=== PATIENT | female | born 1950 | race Caucasian/White ===

== ENCOUNTER → 2017-10-03 | Outpatient (CLI) | payer MEDICARE, OTHER ==
--- NOTE | 2017-10-03 10:41 | REPMRS ---
Patient History The patient states she had a clinical breast exam in Patient is postmenopausal and has history of other cancer at age 56. Family history of colorectal cancer in paternal cousin at age 63. Benign core biopsy of the right breast, November 08, 2012. Benign stereotatic breast biopsy of the right breast, 2004. Digital Woman Screen Mammo: October 03, 2017 - Exam #: [id number] Bilateral CC and MLO view(s) were taken. Technologist: Lizabeth Mcneal, Technologist Prior study comparison: July 14, 2016, digital woman screen mammo performed at [facility]. March 03, 2015, digital woman screen mammo performed at [facility]. FINDINGS: There are scattered fibroglandular densities. There has been no change in the appearance of the mammogram from the prior studies. There is a mild amount of residual fibroglandular tissue which is fairly symmetric. There is no interval development of dominant mass, architectural distortion, or clustered microcalcification suggestive of malignancy. ASSESSMENT: BI-RADS/ACR category 1 mammogram. Negative. Recommendation Routine screening mammogram in 1 year (for women over age 40). This mammogram was interpreted with the aid of an FDA-approved computer-aided dectection system. Electronically Signed By: Philip Pinto MD 10/03/17 [id number]
--- NOTE | 2017-10-05 09:16 | DEXA ---
AP SPINE L1 - L4 1.181 0.0 1.6 LT FEMUR TOTAL 0.867 -1.1 0.2 RT FEMUR TOTAL 0.854 -1.2 0.1 TOTAL BODY TOTAL OTHER COMMENTS: Normal bone densitometry of the spine. There is low bone density of the hips. The density of the spine is decreased 2.6% since 06/2005. The density of the left hip has decreased 8.4% since 06/2005. The density of the right hip has decreased 8.7% since 06/2005. The decreased density of the spine does represent a significant change. The decreased density of the left hip does represent a significant change. The decreased density of the right hip does represent a significant change. FOLLOW-UP: Recommendation for the next bone density exam: 2 years. NORMA
== END ==
LOC: M WHC 09:05
PROVIDERS: ATTEND Family Medicine
DX: Z12.31 Encounter for screening mammogram for malignant neoplasm of breast (principal); M81.0 Age-related osteoporosis without current pathological fracture; Z78.0 Asymptomatic menopausal state
CPT/HCPCS: 77080; G0202

== ENCOUNTER → 2019-12-20 | Outpatient (CLI) | payer MEDICARE, OTHER ==
--- NOTE | 2019-12-20 16:47 | REPMRS ---
Patient History Family history of colorectal cancer at age 63 in paternal cousin. Benign core biopsy of the right breast, November 08, 2012. Benign stereotatic breast biopsy of the right breast, 2005. Digital Woman Screen Mammo: December 20, 2019 - Exam #: [id number] Bilateral CC and MLO view(s) were taken. Technologist: Indira Cardenas, Technologist Prior study comparison: October 18, 2018, bilateral digital woman screen mammo performed at [facility]. October 03, 2017, digital woman screen mammo performed at [facility]. July 14, 2016, digital woman screen mammo performed at [facility]. FINDINGS: There are scattered fibroglandular densities. There are stable nodular opacities again noted in both breasts unchanged. There are two previously placed needle biopsy marker clips again noted on the right. There has been no change in the appearance of the mammogram from the prior studies. There is a mild amount of scattered fibroglandular density which is fairly symmetric. There is no interval development of dominant mass, architectural distortion, or grouped microcalcification suggestive of malignancy. 3-D tomosynthesis shows no additional findings. Assessment: BI-RADS/ACR category 2 mammogram. Benign Findings. Recommendation Routine screening mammogram of both breasts in 1 year (for women over age 40). This patient's Lifetime Breast Cancer Risk is estimated at 4.1 %. This mammogram was interpreted with the aid of an FDA-approved computer-aided dectection system. Electronically Signed By: Kaden Cuevas MD 12/20/19 [id number]
== END ==
LOC: M WHC 13:23
PROVIDERS: ATTEND Family Medicine
DX: Z12.31 Encounter for screening mammogram for malignant neoplasm of breast (principal)

== ENCOUNTER → 2020-12-22 | Outpatient (CLI) | payer MEDICARE, OTHER ==
--- NOTE | 2020-12-22 11:41 | REPMRS ---
Patient History The patient states she had a clinical breast exam in 2020. Family history of colorectal cancer at age 63 in paternal cousin. Benign core biopsy of the right breast, November 08, 2012. Benign stereotatic breast biopsy of the right breast, 2004. Digital Woman Screen Mammo: December 22, 2020 - Exam #: [id number] Bilateral CC and MLO view(s) were taken. Technologist: Joselin Reilly, Technologist Prior study comparison: December 20, 2019, bilateral digital woman screen mammo performed at [facility]. October 18, 2018, bilateral digital woman screen mammo performed at [facility]. October 03, 2017, digital woman screen mammo performed at [facility]. FINDINGS: There are scattered fibroglandular densities. The Volpara volumetric breast density category is:B. There has been no change in the appearance of the mammogram from the prior studies. There is a mild amount of scattered fibroglandular density which is fairly symmetric. There is no interval development of dominant mass, architectural distortion, or grouped microcalcification suggestive of malignancy. 3-D tomosynthesis shows no additional findings. Assessment: BI-RADS/ACR category 1 mammogram. Negative Mammogram. Recommendation Routine screening mammogram of both breasts in 1 year (for women over age 40). This patient's [facility] Lifetime Breast Cancer Risk is estimated at 3.9 %. This mammogram was interpreted with the aid of an FDA-approved computer-aided dectection system. Electronically Signed By: Kaden Cuevas MD 12/22/20 [id number]
--- NOTE | 2020-12-22 11:56 | DEXAMM ---
INDICATION: Z78.0 POST MENOPAUSAL. COMPARISON: 10/03/2017, 06/28/2005. TECHNIQUE: Bone density was measured using dual-energy x-ray absorptiometry (DEXA). FINDINGS: AP SPINE L1-L4 BMD 1.186 g/cm2 Young Adult T-Score 0.1 Age Matched Z-Score 1.7. LT FEMUR, TOTAL BMD 0.867 g/cm2 Young Adult T-Score -1.1 Age Matched Z-Score 0.3. LT NECK BMD 0.801 g/cm2 Young Adult T-Score -1.7 Age Matched Z-Score 0.0. RT FEMUR, TOTAL BMD 0.828 g/cm2 Young Adult T-Score -1.4 Age Matched Z-Score 0.0. RT NECK BMD 0.769 g/cm2 Young Adult T-Score -1.9 Age Matched Z-Score -0.3. IMPRESSION: There is normal bone density of the spine. There is low bone density of the left hip. There is low bone density of the right hip. The density of the spine has decreased 2.1% since the initial exam on 06/28/2005. The density of the spine increased 0.4% since most recent exam on 10/03/2017. The density of the left hip has decreased 8.4% since initial exam on 06/28/2005. The density of the left hip has not changed since most recent exam on 10/03/2017. The density of the right hip has decreased 11.4% since the initial exam on 06/28/2005. The density of the right hip has decreased 3.0% since the most recent exam on 10/03/2017. FOLLOW-UP: Recommendation for the next bone density exam: 2 years. <Electronically signed by Philip Pinto > 12/22/20 [id number]
== END ==
LOC: M WHC 10:41
PROVIDERS: ATTEND Nurse Practitioner Family
DX: Z12.31 Encounter for screening mammogram for malignant neoplasm of breast (principal); Z78.0 Asymptomatic menopausal state

== ENCOUNTER → 2022-03-02 | Outpatient (CLI) | payer OTHER | LOC: M WHC 10:58 | PROVIDERS: ATTEND Student in an Organized Health Care Education/Training Program | DX: Z12.31 Encounter for screening mammogram for malignant neoplasm of breast (principal) ==

== ENCOUNTER → 2024-07-17 | Outpatient (CLI) | payer OTHER | LOC: M WHC 10:04 | PROVIDERS: ATTEND Nurse Practitioner Family | DX: Z12.31 Encounter for screening mammogram for malignant neoplasm of breast (principal) ==

== ENCOUNTER → 2025-07-19 | Outpatient (CLI) | payer OTHER | LOC: M WHC 13:01 | PROVIDERS: ATTEND Nurse Practitioner Family | DX: Z12.31 Encounter for screening mammogram for malignant neoplasm of breast (principal); R92.323 Mammographic fibroglandular density, bilateral breasts; R92.8 Other abnormal and inconclusive findings on diagnostic imaging of breast ==

== ENCOUNTER → 2025-07-31 | Outpatient (CLI) | payer OTHER | LOC: M WHC 14:34 | PROVIDERS: ATTEND Family Medicine | DX: R92.30 Dense breasts, unspecified (principal); N64.9 Disorder of breast, unspecified | CPT/HCPCS: 76642; 77065; G0279 ==